=== PATIENT | male | born 1945 | race Caucasian/White ===

== ENCOUNTER 2021-11-30 09:30 | Outpatient (RCR) | payer MEDICARE, SELFPAY ==
--- NOTE | 2021-11-14 12:01 | PTOPEVAL ---
PHYSICAL THERAPY INITIAL EVALUATION. Thank you for referring Angelo Hines to [facility] The patient is scheduled to be seen for therapy? 1x/week for 4 weeks. Please review, sign, date and return this plan of care MOI. I agree with and certify that the following plan of care is medically necessary. Referring Physician Date Attending Provider: Yamilet Koo, PA *PT Outpatient Evaluation Start: 11/14/21 Evaluation Information Diagnosis low back pain Onset 2-3 weeks Subjective Information Pt states he has right sided Query Text:As Reported By Patient/ back pain. He states it is not Family limited his function but activities are painful now. He states it started more intense and has started to subside but has not gone away. Pt states he has been doing a lot of walking and exercising. He also does a golfing exercise class that he thinks may have started this. He has since stop exercise completely due to the pain. He can sit for as long as he wants without an increase in pain, but is limited in standing and walking due to pain. Pain Assessment Lower Back Reported Pain Level 4 Pain Description Aching,Sharp Radicular Pain Location right hip Pain Frequency Acute Lowest Pain Intensity 1 Greatest Pain Intensity 6 Pain Aggravating Factors Stair Climbing,Walking,Weight Bearing/Standing Lumbar ROM Lumbar Flexion Active Mid Krishna Lumbar Extension (0-40) 20 Lateral Flexion B lat flexion 2in above Query Text:Active Hands to: lateral knee joint line. Reports pain with both sides, R> L Lateral Rotation Right (0-45) 45 Lateral Rotation Left (0-45) 45 Lumbar ROM 75% of Normal Lumbar Comments Increased pain with rotation to the L Lower Extremity Range of Motion General Lower Extremity Range of Motion WFL/Left,WFL/Right Lower Extremity Muscle Strength Testing Gross Lower Extremity Strength B LE grossly 5/5 Gait Assessment Other Gait Observations mild B hip ER, decreased trunk motion Manual Therapy Treatment Comments Lumbar and thoracic spine Query Text:Include Technique and hypomobility, tenderness along Result of Technique inferior ~6-8 inches of R
--- NOTE | 2022-01-09 14:37 | PCPTNOTE ---
Called and left voicemail with patient as he has not returned to therapy for 39 days. Gave instructions to call back for a follow up and that if we do not hear back in a week he will be discharged.
--- NOTE | 2022-01-10 11:48 | PCPTNOTE ---
Attending Provider: Yamilet Koo, PA Patient:Angelo Hines Date of :1945 PHYSICAL THERAPY DISCHARGE SUMMARY. Patient called today to report that his back is doing great and he feels he does not need to return to therapy at this time. Therefore, he will be discharged at this time. Patient?s initial visit was on 11/14/2021 and he had a total of 3 visits. The goals have been partially met. Thank you for referring this patient to [facility]. Please review, sign, date and return this discharge summary MOI. I have been updated about the patient's current status and I agree with discharge from the above service at this time. Referring Physician Date
== END 2022-01-11 10:30 | disposition home or self-care (01) ==
LOC: ANHHIPT 09:30
PROVIDERS: PCP Physician Assistant Medical; Visit Provider Physician Assistant Medical
DX: M54.50 Low back pain, unspecified (principal)
CPT/HCPCS: 97110; 97112; 97140; 97161; 97530

== ENCOUNTER 2022-07-17 11:41 | Emergency (ER) | payer MEDICARE, SELFPAY ==
[2022-07-17 13:15] VITALS: BP 140/65; PULSE 60; RESP 18; TEMP 36.9; O2SAT 97
--- NOTE | 2022-07-17 13:44 | ED.URI ---
HPI - URI/Sore Throat General Chief Complaint: Upper Respiratory Infection Stated Complaint: congestion Time Seen by Provider: 07/17/22 13:45 Source: patient Mode of arrival: ambulatory Limitations: no limitations History of Present Illness HPI Narrative: Angelo is a 76-year-old male patient presenting to the clinic today with cough and nasal congestion x4 days. He reports no fever or chills. No known exposure to anyone with COVID, flu, or strep MD elicited complaint: sore throat and nasal congestion Related Data Home Medications Medication Instructions Recorded Confirmed cholecalciferol (vitamin D3) 25 25 mcg PO DAILY 05/11/22 05/11/22 mcg (1,000 unit) capsule lactobacillus combination no.9 4 4,000 mmu cells PO DAILY 05/11/22 05/11/22 billion cell capsule (Adult 50 Plus Probiotic) loratadine 10 mg tablet (Claritin) 10 mg PO DAILY 05/11/22 05/11/22 metoprolol succinate 25 mg 25 mg PO DAILY 05/11/22 05/11/22 tablet,extended release 24 hr omega 4-ixa-giq-fish oil 1,200 mg 1 cap PO 05/11/22 05/11/22 (144 mg-216 mg) capsule (Fish Oil) tamsulosin 0.4 mg capsule 0.4 mg PO DAILY 05/11/22 05/11/22 Allergies Allergy/AdvReac Type Severity Reaction Status Date / Time lisinopril Allergy Other Verified 07/17/22 13:20 atorvastatin [From Lipitor] AdvReac Muscle Pain Verified 07/17/22 13:20 gemfibrozil AdvReac Other Verified 07/17/22 13:20 pravastatin AdvReac Muscle Pain Verified 07/17/22 13:20 byetta AdvReac Nausea Uncoded 07/17/22 13:20 livalo AdvReac Other Uncoded 07/17/22 13:20 niaspan AdvReac stiffness Uncoded 07/17/22 13:20 tricor AdvReac Muscle Pain Uncoded 07/17/22 13:20 Review of Systems Review of Systems: Pertinent positives per HPI. Patient denies any fever, chills, rash, headache, visual changes, dizziness, shortness of breath, chest pain, palpitations, nausea, vomiting, diarrhea, constipation, abdominal pain, or any urinary issues. PMFSH Past Medical History Medical History A-fib Dyslipidemia Fatty liver History of ganglion cyst HTN (hypertension) EBENEZER (obstructive sleep apnea) Type 2 diabetes mellitus without complications Surgical History Surgical History History of cataract surgery Social History Social History Smoking status: Unknown if ever smoked Tobacco type: cigarettes and cigars Smoking end date: 07/16/91 Alcohol intake: current Drinks per week: 2 Substance use: never Substance use type: does not use Gender identity (if verbalized by the patient): Male Comments At the time of my signature, I reviewed and agree with the nursing past medical, surgical, social, and family history. There is no relevant family history pertinent to the patient complaint. Exam Narrative: General: Well-developed, well nourished, in no apparent distress Head: Normocephalic, atraumatic Eyes: Pupils equally round and reactive to light bilaterally, EOM intact, sclera and conjunctive clear, no discharge, lids normal Ears: TMs intact and clear, ear canals clear, no drainage, grossly hearing normal. Nose: Nares patent, clear nasal discharge, moderate inflammation, no sinus tenderness. Mouth: Oral pharynx without lesions or masses, good dentition, MMM. Postnasal drip Neck: Supple, trachea midline, no enlargement of anterior or posterior cervical nodes, no thyroid masses or goiter palpable. Cardio: Regular rate and rhythm, s1 and s2 normal, no murmur appreciated. Resp: Clear to auscultation bilaterally, no rhonchi, rales, wheezing or rubs Course Course Emergency Course: Portions of this record may have been created with voice recognition software. Level of Care: Express Care Visit Vital Signs Vital signs: Vital Signs Temperature 36.9 C 07/17/22 13:15 Pulse Rate 60 07/17/22 13:15 Respi
== END 2022-07-17 14:09 | disposition home or self-care (01) ==
PROVIDERS: Emergency Provider Nurse Practitioner Family
DX: J06.9 Acute upper respiratory infection, unspecified (principal); Z87.891 Personal history of nicotine dependence; I48.91 Unspecified atrial fibrillation; E78.5 Hyperlipidemia, unspecified; K76.0 Fatty (change of) liver, not elsewhere classified; I10 Essential (primary) hypertension; E11.9 Type 2 diabetes mellitus without complications
CPT/HCPCS: 99213; G0463

== ENCOUNTER 2022-08-07 01:12 | Day surgery (SDC) | payer MEDICARE, SELFPAY ==
[2022-08-04 15:22] VITALS: BMI 26.0
[2022-08-07] VITALS (9 sets, daily range): BP systolic 128–152; BP diastolic 58–83; PULSE 48–63; RESP 13–19; TEMP 36.6–36.7; O2SAT 94–98; BMI 26.9
[2022-08-07 07:23] LABS: Basophils Absolute Auto 0.1 K/mm3 (0.0-0.1); Basophils Percent Auto 1.4 % (0.2-1.2); Eosinophils Absolute Auto 0.3 K/mm3 (0-0.3); Eosinophils Percent Auto 2.5 % (0-4.4); Hematocrit 46.7 % (42.0-52.0); Hemoglobin 15.3 g/dL (14.0-18.0); Immature Granulocyte Absolute 0.02 K/mm3 (0.00-0.031); Immature Granulocyte Percent A 0.2 % (0-0.5); Lymphocytes Absolute Auto 4.33 K/mm3 (0.9-3.2); Lymphocytes Percent Auto 43.8 % (18.3-44.2); Mean Corpuscular HGB Conc 32.8 g/dl (32-36); Mean Corpuscular Hemoglobin 31.5 pg (26-34); Mean Corpuscular Volume 96.3 fl (80-100); Mean Platelet Volume 11.5 fl (7.4-10.4); Monocytes Absolute Auto 0.6 K/mm3 (0.1-0.6); Monocytes Percent Auto 6.1 % (2.6-8.5); Neutrophils Absolute Auto 4.5 K/mm3 (1.3-6.7); Platelet Count Result 224 k/mm3 (150-375); Red Blood Count 4.85 M/mm3 (4.6-6.20); White Blood Count 9.9 K/mm3 (4.5-10.0)
[2022-08-07 07:33] LABS: Prothrombin Time 12.3 Seconds (11.1-14.7)
[2022-08-07 07:35] LABS: Anion Gap 8 mmol/L (8-16); Blood Urea Nitrogen 22 mg/dL (9-20); Calcium 8.9 mg/dL (8.4-10.2); Carbon Dioxide 23 mmol/L (22-30); Chloride 107 mmol/L (98-107); Estimated CRCL calculation 52 ml/min; Estimated Glomerular Filt Rate > 60; Glucose 141 mg/dL (65-110); Potassium 4.5 mmol/L (3.4-5.0); Sodium 138 mmol/L (137-145)
--- NOTE | 2022-08-07 08:24 | WPDMODSED ---
Moderate Sedation Note-Pt Data Patient Data Diagnosis: Chest pain/ abnormal stress echo history of atrial flutter Present Complaint: intermittent chest pain Procedure to be performed/Plan: left heart catheterization Allergies Allergy/AdvReac Type Severity Reaction Status Date / Time atorvastatin [From Lipitor] AdvReac Muscle Pain Verified 08/07/22 07:15 fenofibrate AdvReac Muscle Pain Verified 08/07/22 07:15 gemfibrozil AdvReac Other Verified 08/07/22 07:15 niacin AdvReac Unknown Verified 08/07/22 07:15 pitavastatin [From Livalo] AdvReac Muscle Pain Verified 08/07/22 07:15 pravastatin AdvReac Muscle Pain Verified 08/07/22 07:15 [id number] Reductase AdvReac Muscle Pain Verified 08/07/22 07:15 Inhibitor Home Medications Medication Instructions Recorded Confirmed Type cholecalciferol (vitamin D3) 25 25 mcg PO DAILY 05/11/22 08/04/22 History mcg (1,000 unit) capsule metoprolol succinate 25 mg 25 mg PO DAILY 05/11/22 08/04/22 History tablet,extended release 24 hr omega 0-psl-lvi-fish oil 1,200 mg 1 cap PO DAILY 05/11/22 08/04/22 History (144 mg-216 mg) capsule (Fish Oil) tamsulosin 0.4 mg capsule 0.4 mg PO DAILY 05/11/22 08/04/22 History losartan 100 mg tablet 100 mg PO DAILY #90 tabs 05/17/22 08/04/22 Rx metformin 1,000 mg tablet 1,000 mg PO BID #180 tabs 06/19/22 08/04/22 Rx apixaban 5 mg tablet (Eliquis) 5 mg PO BID #180 tabs 07/28/22 08/04/22 Rx Current Medications: Active Medications Sodium Chloride (Normal Saline Iv) 500 mls @ 100 mls/hr IV CONT .Q5H GRABIEL Sedation/Anesthesia: No previous sedation/anesthesia problems (including family history). [facility] Past Medical History Medical History A-fib Dyslipidemia Fatty liver History of ganglion cyst HTN (hypertension) EBENEZER (obstructive sleep apnea) Type 2 diabetes mellitus without complications Surgical History Surgical History History of cataract surgery Social History Social History (Updated 07/18/22 @ 14:52 by Esme Snowden) Smoking status: Former smoker Tobacco type: cigarettes Second hand tobacco smoke exposure: No Smoking end date: 07/16/91 Alcohol intake: current Drinks per week: 6 Substance use: never Substance use type: does not use Lack of Transportation: No Lack of Food: Never True Current Housing: I Have Housing Concerned About Future Housing: No Difficulty Paying Gas/Electric Bills: No Difficulty Paying for Meds: No Currently Unemployed: No Education: High School Diploma/GED Difficulty w/ Childcare or Family Care: No Living arrangements: with friend(s) Occupation/Education: occupation Gender identity (if verbalized by the patient): Male Sexual Orientation (if Verbalized by the Patient): Straight or Heterosexual Spiritual care concerns: No Mod Sed Physical Exam Physical Exam Pre Procedural Exam: Normal: Appearance, Nose, Neck, Throat, Airway, Lungs, Heart Size, Heart Rhythm, Neuro Exam and Extremities and Variation: Heart Rate ( heart rate 48) Hours since solid foods: 12 Hours since liquid intake: 12 Mallampati Classification: class II Internal Medicine - PN: Obj Da Vital Signs Vital Signs: Vital Signs - 24 hr 08/07/22 07:20 Temperature 36.6 C Pulse Rate 48 L Respiratory Rate 19 Blood Pressure 140/66 Pulse Oximetry 98 Oxygen Delivery Room Air Meds/Results Medications: Active Medications Generic Name Dose Route Start Last Admin Trade Name Freq PRN Reason Stop Dose Admin Sodium Chloride 500 mls @ 100 mls/hr 08/07/22 07:00 Normal Saline Iv IV CONT .Q5H GRABIEL Labs 08/07/22 07:12 08/07/22 07:12 Labs: Laboratory Results - last 24 hr 08/07/22 08/07/22 08/07/22 07:12 07:12 07:12 WBC 9.9 RBC 4.85 Hgb 15.3 Hct 46.7 MCV 96.3 MCH 31.5 MCHC 32.8 RDW 12.0 Plt
--- NOTE | 2022-08-07 08:26 | SUR.PREOP ---
0715 Dr. Starr at bedside talking with patient and .
--- NOTE | 2022-08-07 09:03 | WPDCARDPROC ---
Cardiac Cath Procedure Note Date of procedure:: 08/07/22 Performing physician:: Caleb Starr MD Indication:: intermittent chest pain compatible with ischemia abnormal stress echocardiogram history of atrial flutter diabetes Brief clinical history:: this is a 76-year-old diabetic gentleman with a prior history of atrial flutter who recently became my patient in the office. He was describing intermittent symptoms concerning for ischemia which led to stress echocardiogram. This was significantly abnormal prompting recommendation for angiography today. He is also intolerant of statins with muscle pain caused by 3 different statins necessitating there discontinuance. Procedure Procedure performed:: Left ventriculogram coronary angiogram Angio-Seal to right femoral artery Sedation/Medication given:: fentanyl 50 mg Versed 2 mg case start 8:33 a.m. case end time 8:58 a.m. sedation provided by Farhana Hines RN, trained observer Access site:: right femoral artery Estimated blood loss:: 25 cc Procedure note:: patient was brought to the cardiac catheterization lab the postabsorptive state where the right femoral triangle were prepared and draped in the normal fashion. Anesthesia was Provided with 1% lidocaine infiltrated locally. Using the modified Seldinger technique the femoral artery was punctured and a 5 Singaporean vascular sheath was placed. After this a angled pigtail catheter was used to document left-sided hemodynamics and to inject LV g in 30 degree FLORES projection. Following this standard 5 Singaporean JR4 catheter was used to engage inject the right coronary artery and a 5 Singaporean FL4 catheter was used to engage and inject the left coronary artery. Cineangiograms were then reviewed and the case was terminated. An angiogram was performed to the femoral artery to through the sheath after which an Angio-Seal device was deployed with a good hemostatic result. The patient was then taken off the table and back to recovery. There was no complication and there was no evidence of a groin hematoma as he was leaving the cardiac catheterization lab. Findings:: hemodynamics: Central aortic pressure is 1 6 over 42 left ventricle 6 0 end-diastolic pressure 12 there is no gradient on pullback left ventricle: The LV is normal in size all segments contract appropriately the global ejection fraction is 60% by visual estimation the left main coronary artery is patent the left anterior descending is a medium caliber vessel with a long area of diffuse stenosis proximally of 90%. A small 1st diagonal branch takes off this. There is then a longer area of 90-95% stenosis in the LAD after the origin of the 2nd diagonal branch which is the larger of the 2 diagonals. This is 95% stenosis and is relatively long. Distal to this the LAD is medium in caliber and extends down to the apex without significant stenosis. the circumflex is a moderate caliber artery giving rise to the OR marginal branches. The proximal circumflex and the 1st OM are free of significant disease. Then there is a 80% stenosis in the trunk of the circumflex between the 2 marginal branches. The 2nd OM is A relatively large caliber vessel. There is also a smaller posterior branch distal to this lesion. The right coronary artery is medium in caliber and dominant to the posterior circulation. The right coronary artery is free of significant disease. The REID projection suggested there may be a discrete lesion in the 3rd portion however this was not seen in the cranial or FLORES projections and in my opinion represents a tortuous segment rather than stenosis. Conclusion:: 1. 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 significant 80% stenosis in the trunk of the circumflex after the 1st OM branch but jeopardizing a large si
--- NOTE | 2022-08-07 10:08 | SUR.PHASEII ---
Pt resting comfortably in bed, head of bed elevated to 30 degrees, pt given breakfast tray, denies pain, SOB or other symptoms. Continue to monitor.
--- NOTE | 2022-08-07 12:18 | SUR.PHASEII ---
Nica Mosley at bedside to answer questions for pt and family.
== END 2022-08-07 12:35 | disposition home or self-care (01) ==
PROVIDERS: PCP Physician Assistant Medical; Visit Provider Specialist
PROC: 4A023N7 Measurement of Cardiac Sampling and Pressure, Left Heart, Percutaneous Approach (ICD-10-PCS; CPT 93452; principal; 2022-08-07 08:30)
DX: I25.10 Atherosclerotic heart disease of native coronary artery without angina pectoris (principal); R93.1 Abnormal findings on diagnostic imaging of heart and coronary circulation; R07.9 Chest pain, unspecified; I48.92 Unspecified atrial flutter; E11.9 Type 2 diabetes mellitus without complications; E78.5 Hyperlipidemia, unspecified; K76.0 Fatty (change of) liver, not elsewhere classified; I10 Essential (primary) hypertension; G47.33 Obstructive sleep apnea (adult) (pediatric); Z79.01 Long term (current) use of anticoagulants; Z79.84 Long term (current) use of oral hypoglycemic drugs; Z87.891 Personal history of nicotine dependence
CPT/HCPCS: 36415; 80048; 85025; 85610; 93458; C1760; C1887; C1894; G0269; J0583; J1644; J2250; J3010; J7040

== ENCOUNTER 2025-07-04 08:51 | Emergency (ER) | payer MEDICARE, SELFPAY ==
--- NOTE | 2025-07-04 08:54 | ED.EAR ---
HPI - Ear Problem General Chief complaint: Ear Stated complaint: L Ear Time Seen by Provider: 07/04/25 09:03 Source: patient, RN notes reviewed and old records reviewed Mode of arrival: ambulatory Limitations: no limitations History of Present Illness HPI Narrative: 79-year-old male presents to the [facility] with complaints of left ear pain that started on , 2 days ago. Reports he started wearing hearing aids on Sunday. Noticed yesterday some brown drainage. Treatment prior to arrival: none Related Data Home Medications ?Medication ?Instructions ?Recorded ?Confirmed ?Last Taken ?Type tamsulosin 0.4 mg capsule 0.4 mg PO DAILY 05/11/22 03/31/25 08/06/22 19:00 History metoprolol succinate 50 mg 50 mg PO DAILY 09/18/23 03/31/25 Unknown History tablet,extended release 24 hr amlodipine 5 mg tablet 5 mg PO QHS 10/01/24 03/31/25 Unknown History evolocumab 140 mg/mL subcutaneous 140 mg subcut Q14D 10/01/24 03/31/25 Unknown History pen injector (Lam Roy) Allergies Allergy/AdvReac Type Severity Reaction Status Date / Time atorvastatin (From Lipitor) AdvReac Muscle Pain Verified 07/04/25 09:00 fenofibrate AdvReac Muscle Pain Verified 07/04/25 09:00 gemfibrozil AdvReac Other Verified 07/04/25 09:00 niacin AdvReac Unknown Verified 07/04/25 09:00 pitavastatin (From Livalo) AdvReac Muscle Pain Verified 07/04/25 09:00 pravastatin AdvReac Muscle Pain Verified 07/04/25 09:00 Ogqxprm-XRI-FwH Reductase AdvReac Muscle Pain Verified 07/04/25 09:00 Inhibitor Review of Systems Review of Systems: All systems reviewed & are unremarkable except as noted in HPI and below Constitutional: Constitutional: Reports no additional constitutional complaints ENT: Reports as per HPI and Reports otalgia (left) Respiratory: Respiratory: Reports no additional respiratory complaints, Denies chest congestion, Denies cough and Denies dyspnea Musculoskeletal: Musculoskeletal: Reports no additional musculoskeletal complaints Integumentary/Breasts: Skin/Breast: Reports system reviewed and no additional complaints, except as docu PMFSH Past Medical History Medical History A-fib History of ganglion cyst Fatty liver EBENEZER (obstructive sleep apnea) Dyslipidemia Type 2 diabetes mellitus without complications HTN (hypertension) Surgical History Surgical History 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 Pt has not received assistance in the last 12 months. 03/28/25 Patient declined SDOH Smoking status: Former smoker Tobacco type: cigarettes Second hand tobacco smoke exposure: No Smoking end date: 07/16/91 Alcohol intake: current Drinks per week: 6 Substance use: never Substance use type: does not use Lack of Transportation: No Lack of Food: Never True Current Housing: I Have Housing Concerned About Future Housing: No Difficulty Paying Gas/Electric Bills: No Difficulty Paying for Meds: No Currently Unemployed: No Education: Associate Degree Difficulty w/ Childcare or Family Care: No Living arrangements: with friend(s) Occupation/Education: occupation Gender identity (if verbalized by the patient): Male Sexual Orientation (if Verbalized by the Patient): Straight or Heterosexual Spiritual care concerns: No Comments At the time of my signature, I reviewed and agree with the nursing past medical, surgical, social, and family history. There is no relevant family history pertinent to the patient complaint. Exam Const: General: cooperative, healthy appearing, comfortable, no acute distress, well developed, alert and well nourished Nutritional Appearance: well nourished Orientation/consciousness: patient oriented x3 Limitations: no limitations HENMT: Head: normal to inspection Ears: TM's normal bilaterally, mastoids normal, no periauricular adenopathy and Abnormal EAC present edema on the left and EAC tenderness on the left; no erythema, no foreign body and no otic discharge Face/Nose/Sinus: Normal external nose present and Normal nares present Eyes: General: appearance normal, both eyes and all related structures Alignment and Position: alignment normal Neck: Neck: normal visual inspection, full ROM, no lymphadenopathy and no meningeal signs Chest: Chest palpation & inspection: normal inspection of the chest Resp: Effort & Inspection: normal respiratory effort and able to speak in complete sentences Cardio: Rate: regular rate Skin: General skin exam: normal color and no rashes or lesions noted Neuro: General: patient oriented x3, gait normal, moves all extremities and no meningeal signs Cognition (Neuro): normal cognition Speech: normal speech Gait exam (Neuro): Normal gait present Extrem: General: normal to inspection, full ROM, capillary refill normal and normal gait Psych: Appearance: grossly normal and well kempt Mental Status: mental status grossly normal Speech and movement: Normal speech and movement present and Clear speech present Affect: normal affect Attitude: cooperative Course Course Level of Care: Express Care Visit Vital Signs Vital signs: Vital Signs Temperature 98.1 F 07/04/25 09:01 Pulse Rate 72 07/04/25 09:01 Respiratory Rate 16 07/04/25 09:01 Blood Pressure 149/65 H 07/04/25 09:01 Pulse Oximetry 97 07/04/25 09:01 Oxygen Delivery Room Air 07/04/25 09:01 Temperature 98.1 F 07/04/25 09:01 Pulse Rate 72 07/04/25 09:01 Respiratory Rate 16 07/04/25 09:01 Blood Pressure 149/65 H 07/04/25 09:01 Pulse Oximetry 97 07/04/25 09:01 Oxygen Delivery Room Air 07/04/25 09:01 reviewed MDM MDM Narrative Medical decision making narrative: Patient sitting in exam room. Patient is nontoxic, vitals are stable. Patient presents with left ear pain for 2 days. Has some significant swelling of the ear canal, no drainage, no erythema. TM is intact without erythema. Patient possible reaction to the hearing aids versus infection. Will cover with antibiotic ear drops with steroid and them. Patient is appropriate for outpatient treatment with close follow-up Discharge instructions reviewed with patient, as well as provided in writing per nursing staff. The instructions also include specific and strict return/GO TO THE ER as well as f/u information. All questions have been answered, and the patient deny any further questions with discharge and discharge plan. Some parts of this dictation were generated by voice recognition software and may contain typographical and/or grammatical inaccuracies. Differential Diagnosis Differential Diagnosis: Differential diagnostic considerations for upper respiratory infection include upper respiratory infection, otitis media, otitis externa, serous otitis Medical Records I have reviewed the following patient records and this information was taken into consideration when formulating the assessment and plan.: previous ER visits and previous clinic visits Discharge Plan Discharge Clinical Impression: Irritation of external ear canal Qualifiers: Laterality: left Qualified Code(s): H61.892 - Other specified disorders of left external ear Patient Disposition: Home Condition: Stable Instructions: Antibiotic Form, Swimmer's Ear (ED) Additional Instructions: use ear drops as prescribed take Tylenol as needed for pain follow-up with primary care provider Patient Language: Citizen Of [place] Prescriptions: New ciprofloxacin-dexamethasone 0.3-0.1 % drops,suspension 5 drp LEFT EAR Q12H 7 Days Qty: 7.5 0RF No Action gabapentin 100 mg capsule 100 mg PO TID Qty: 60 0RF tamsulosin 0.4 mg capsule 0.4 mg PO DAILY Repatha SureClick 140 mg/mL pen injector 140 mg subcut Q14D amlodipine 5 mg tablet 5 mg PO QHS nitroglycerin [Nitrostat] 0.4 mg Tablet, Sublingual 0.4 mg sublingual Q5MIN PRN (Reason: Chest Pain) 30 Days Qty: 10 0RF metoprolol succinate 50 mg tablet extended release 24 hr 50 mg PO DAILY metformin 1,000 mg tablet 1,000 mg PO BID Qty: 180 1RF Eliquis 5 mg tablet 5 mg PO BID Qty: 180 0RF Follow-up/Referrals: Yamilet Koo PA-C [Primary Care Provider, Family Practice] - 1 Week Referral Note: swelling to the left ear canal Clinical Impression: Irritation of external ear canal Time of Disposition: 09:18
[2025-07-04 09:01] VITALS: BP 149/65; PULSE 72; RESP 16; TEMP 36.7; O2SAT 97
== END 2025-07-04 09:23 | disposition home or self-care (01) ==
PROVIDERS: Emergency Provider Nurse Practitioner; PCP Physician Assistant Medical
DX: H61.892 Other specified disorders of left external ear (principal); Z87.891 Personal history of nicotine dependence; E11.9 Type 2 diabetes mellitus without complications; Z79.84 Long term (current) use of oral hypoglycemic drugs; I10 Essential (primary) hypertension; I48.91 Unspecified atrial fibrillation; E78.5 Hyperlipidemia, unspecified; K76.0 Fatty (change of) liver, not elsewhere classified; Z96.611 Presence of right artificial shoulder joint; Z95.1 Presence of aortocoronary bypass graft; Z79.01 Long term (current) use of anticoagulants
CPT/HCPCS: 99213; G0463